=== PATIENT | male | born 1945 | race Caucasian/White ===

== ENCOUNTER 2017-05-01 01:13 | Inpatient (IN) | payer MEDICARE, OTHER ==
[2017-05-01 02:07] LABS: ADD MAN DIFF? NO
[2017-05-01 02:19] LABS: BASOPHILS % 0.5 % (0.0-2.0); EOSINOPHILS # 0.3 10^3/ul (0.0-0.5); EOSINOPHILS % 5.1 % (0.0-7.0); HEMATOCRIT 42.2 % (42.0-52.0); HEMOGLOBIN 14.1 g/dl (14.0-18.0); LYMPHOCYTES # 1.7 10^3/ul (0.8-2.9); LYMPHOCYTES % 27.1 % (15.0-51.0); MEAN CORPUSCULAR HEMOGLOBIN 30.5 pg (29.0-33.0); MEAN CORPUSCULAR HGB CONC 33.4 g/dl (32.0-37.0); MEAN CORPUSCULAR VOLUME 91.3 fl (82.0-101.0); MEAN PLATELET VOLUME 10.3 fl (7.4-10.4); MONOCYTE # 0.5 10^3/ul (0.3-0.9); MONOCYTES % 8.2 % (0.0-11.0); NEUTROPHIL # 3.6 10^3/ul (1.6-7.5); NEUTROPHILS % 58.5 % (39.0-77.0); PLATELET COUNT 156 10^3/UL (140-415); RED BLOOD COUNT 4.62 10^6/ul (4.70-6.10); RED CELL DISTRIBUTION WIDTH 13.4 % (11.5-14.5)
[2017-05-01 02:19] LABS: WHITE BLOOD COUNT 6.2 10^3/ul (4.8-10.8)
[2017-05-01 02:29] LABS: ANION GAP 15 (8-16); BLOOD UREA NITROGEN 35 mg/dl (7-20); CARBON DIOXIDE 23 mmol/L (21-31); CHLORIDE 107 mmol/L (97-110); CREATININE 2.15 mg/dl (0.61-1.24); GLUCOSE 108 mg/dl (70-220); POTASSIUM 4.2 mmol/L (3.5-5.1); SODIUM 141 mmol/L (135-144)
[2017-05-01] MEDS: SOD CHLORIDE 0.9% 500 ML IV (02:41)
[2017-05-01] MEDS: LORAZEPAM 1 MG TAB PO (02:51)
[2017-05-01 02:52] LABS: TROPONIN-I < 0.012 ng/ml (0.00-0.12)
[2017-05-01] MEDS ORDERED: ACETAMINOPHEN 325 MG TAB PO ×2 (03:30→04:30)
[2017-05-01] MEDS ORDERED: LORAZEPAM 2 MG INJ IV (04:30)
[2017-05-01] MEDS ORDERED: HYDROCODONE/APAP (5/325) TAB PO (04:30)
[2017-05-01] MEDS ORDERED: MAGNESIUM HYDROXIDE 30ML CUP PO (04:30)
[2017-05-01] MEDS ORDERED: NITROGLYCERIN (SL) 0.4 MG TAB SL (04:30)
[2017-05-01] MEDS ORDERED: ALBUTEROL/IPRATROPIUM (NEB) 3 ML AMP HHN (04:30)
[2017-05-01] MEDS ORDERED: DOCUSATE SODIUM 100 MG CAP PO (04:30)
[2017-05-01] MEDS ORDERED: hydrALAzine 20 MG INJ IV (04:30)
[2017-05-01] MEDS ORDERED: NA PHOSPHATE/BIPHOS 133 ML ENEMA PR (04:30)
[2017-05-01] MEDS ORDERED: NACL 0.9% 3 ML SYG IV (04:30)
[2017-05-01] MEDS ORDERED: ONDANSETRON 4 MG INJ IV (04:30)
[2017-05-01] MEDS: morphine 2 MG INJ IV (05:22)
[2017-05-01] MEDS: ONDANSETRON 4 MG INJ IV (05:22)
[2017-05-01] MEDS: SOD CHLORIDE 0.9% 1,000 ML IV ×2 (05:24→10:55)
[2017-05-01] MEDS: FAMOTIDINE 20 MG TAB PO (08:09)
[2017-05-01] MEDS: HEPARIN 5,000 UNIT/0.5 ML VIAL SC (08:21)
[2017-05-01] MEDS: ASPIRIN (EC) 325 MG TAB PO (10:55)
[2017-05-01 11:28] LABS: CREATINE KINASE 152 IU/L (23-200)
[2017-05-01 11:41] LABS: CK INDEX 0.6; CK-MB 0.91 ng/ml (0.0-2.4); TROPONIN-I < 0.012 ng/ml (0.00-0.12)
[2017-05-01] MEDS: CLOPIDOGREL 75 MG TAB PO (12:41)
[2017-05-01] MEDS: LISINOPRIL 5 MG TAB PO (12:41)
[2017-05-01] MEDS: AMLODIPINE 5 MG TAB PO (12:42)
[2017-05-01] MEDS: VALACYCLOVIR 500 MG TAB PO (14:00)
[2017-05-01 14:06] LABS: FREE T4 (FREE THYROXINE) 0.89 ng/dl (0.78-2.44)
[2017-05-01] MEDS ORDERED: ATORVASTATIN 40 MG TAB PO (21:00)
== END 2017-05-01 14:39 | disposition home or self-care (01) | DRG 313 ==
LOC: E/R 01:13 → MS4 03:24
DX: R07.89 Other chest pain (principal); I25.2 Old myocardial infarction; N17.9 Acute kidney failure, unspecified; N18.4 Chronic kidney disease, stage 4 (severe); Q61.3 Polycystic kidney, unspecified; I25.10 Atherosclerotic heart disease of native coronary artery without angina pectoris; I12.9 Hypertensive chronic kidney disease with stage 1 through stage 4 chronic kidney disease, or unspecified chronic kidney disease; E78.5 Hyperlipidemia, unspecified; F12.90 Cannabis use, unspecified, uncomplicated; R55 Syncope and collapse; Z95.5 Presence of coronary angioplasty implant and graft; Z87.891 Personal history of nicotine dependence
CPT/HCPCS: 36415; 71045; 80048; 82550; 82553; 84439; 84484; 85025; 93005; 96372; 96374; 96375; 99285-25